=== PATIENT | male | born 1955 | race Hispanic/Latino ===

== ENCOUNTER 2019-06-15 23:16 | Emergency (ER) | payer SELFPAY ==
[2019-06-15 23:46] LABS: #Basophils 0.1 thou/uL (0.0-0.2); #Eosinphils 0.2 thou/uL (0.0-0.7); #Monocytes 0.5 thou/uL (0.11-0.59); %Basophils 1.3 % (0.0-1.0); %Eosinophils 3.6 % (0.0-10.0); %Lymphocytes 16.8 % (21.0-51.0); %Neutrophils 70.2 % (42.0-75.0); Hemoglobin 8.3 g/dL (14.0-18.0); Mean Corpuscular HGB CONC 32.5 g/dL (32.0-36.0); Mean Corpuscular Hemoglobin 28.2 pg (27.0-31.0); Mean Corpuscular Volume 86.6 fL (78.0-98.0); Mean Platelet Volume 6.3 fL (7.4-10.4); Platelet Count 259 thou/uL (130-400); RBC Distribution Width 11.8 % (11.5-14.5); Red Blood Cell (RBC) Count 2.93 mill/uL (4.70-6.10); White Blood Cell (WBC) Count 5.7 thou/uL (4.8-10.8)
[2019-06-16] LABS: ALT (SGPT) 11 U/L (8-55); AST (SGOT) 9 U/L (5-34); Albumin 4.1 g/dL (3.4-4.8); Alkaline Phosphatase 74 U/L (40-110); Anion Gap 20 mmol/L (10-20); Bilirubin, Total 0.4 mg/dL (0.2-1.2); Calc. Creatinine Clearance 0 mL/min (70-130); Calcium 8.2 mg/dL (7.8-10.44); Carbon Dioxide 16 mmol/L (23-31); Chloride 102 mmol/L (98-107); Estimated GFR-MDRD 5; Globulin 2.6 g/dL (2.4-3.5); Glucose 169 mg/dL (80-115); Magnesium 2.1 mg/dL (1.6-2.6); Potassium 5.5 mmol/L (3.5-5.1); Protein, Total 6.7 g/dL (5.8-8.1); Sodium 132 mmol/L (136-145)
[2019-06-16] MEDS ORDERED: Sodium Chloride 0.9% 500 ML ONE (00:16)
[2019-06-16 00:18] LABS: BUN (Urea Nitrogen) 129 mg/dL (8.4-25.7)
[2019-06-16 00:34] LABS: Base Excess-Venous -7.6 mmol/L (-2.0 to 3.0); Bicarbonate (HCO3v) 18.7 mmol/L (22.0-28.0); CO2 Tension (PvCO2) 40.3 mmHg (40.0-50.0); Hemoglobin - Calc 8.4 g/dL (14.0-18.0); vO2 Saturation-calc 98.4 % (60.0-85.0)
[2019-06-16 00:39] LABS: Phosphorus 5.2 mg/dL (2.3-4.7)
[2019-06-16 00:45] LABS: Calcium, Ionized 1.01 mmol/L (See Comments:); Chloride 103 mmol/L (98-107); Potassium 5.4 mmol/L (3.5-5.1); Sodium 131 mmol/L (138-145); T. Carbon Dioxide 19.9 mmol/L (22.0-28.0)
== END 2019-06-16 01:13 | disposition short-term general hospital (02) ==
LOC: NAV ERS 23:16
DX: N17.9 Acute kidney failure, unspecified (principal); E87.5 Hyperkalemia; E11.22 Type 2 diabetes mellitus with diabetic chronic kidney disease; I12.0 Hypertensive chronic kidney disease with stage 5 chronic kidney disease or end stage renal disease; N18.6 End stage renal disease; Z79.84 Long term (current) use of oral hypoglycemic drugs; Z79.899 Other long term (current) drug therapy
CPT/HCPCS: 82330; 82435; 82803; 83605; 83735; 84100; 84132; 84295; 85014; 93005; J7050